=== PATIENT | female | born 1950 | race Caucasian/White ===

== ENCOUNTER 2017-03-03 08:44 | Day surgery (SDC) | payer OTHER ==
[~2017-03-03] VITALS: Ht 170.2 cm; Wt 72.0 kg
[~2017-03-03 08:44] MED LIST: ALBU18HF INH; ALPR0.5T8 PO; ASPI-973 PO; CHOL100045 PO; CYCL5TAB PO; HYDR-4003 PO; IBUP200C PO; ONDA-53 PO; Sodium Chloride LOK Flush 10 mL Syringe IV PRN; VIT1TABL83 PO; fentaNYL-PF 50 mCg/mL 2 mL Inj IVPUSH PRN
[2017-03-03 09:17] VITALS: BP 139/78; PULSE 50; RESP 14; O2SAT 98
[2017-03-03] MEDS ORDERED: LISI10TA PO (09:20)
[2017-03-03] MEDS: 0.9% Sodium Chloride 1,000 ML IV SCH ×2 (09:53→09:56)
[2017-03-03 10:07] VITALS: BP 117/67; PULSE 48; RESP 14; O2SAT 96
[2017-03-03 10:16] VITALS: BP 112/62; PULSE 56; RESP 16; O2SAT 97
[2017-03-03 10:26] VITALS: BP 126/62; PULSE 44; RESP 16; O2SAT 97
[2017-03-03 10:36] VITALS: BP 116/63; PULSE 56; RESP 16; O2SAT 98
--- NOTE | 2017-03-03 12:21 | ENDO ---
[address] [address] ENDOSCOPY PROCEDURE PATIENT: GABY MICHAEL : 1950 MR#: [id number] ADMIT: 03/03/2017 JOB ID: [id number] PROCEDURE: Colonoscopy. INDICATIONS: Screening. Patient's ASA classification is one. Mallampati score is two. MEDICATIONS: 1. Versed 6 mg. 2. Fentanyl 125 mcg. INSTRUMENT USED: PCF H 180 AL. PREPARATION QUALITY: Good. PROCEDURE DETAILS: After informed consent was obtained, the patient was brought to the GI suite where she was placed on oxygen via nasal cannula and monitored with continuous pulse oximeter, telemetry, and blood pressure monitoring. A time-out was performed, then she was placed in the left lateral decubitus position and medications were administered for sedation. Digital rectal exam was performed, which was unremarkable. The colonoscope was then inserted into the rectum and advanced under direct visualization to the cecum, which identified by the presence of the ileocecal valve and appendiceal orifice. Insertion to the cecum was quite difficult as the patient's colon was quite tortuous. Once the cecum was reached, the colonoscope was then withdrawn back into the rectum as the mucosa and lumen were examined. In the rectum, retroflexion was performed. Following retroflexion, the remaining air in the rectum was suctioned and the procedure was completed. FINDINGS: 1. In the transverse colon there was an approximately 5-6 mm sessile polyp that was removed with a cold snare. 2. Scattered diverticula were seen throughout the entire colon. IMPRESSION: 1. Transverse colon polyp. 2. Scattered diverticula throughout the entire colon. RECOMMENDATIONS: 1. Fiber rich diet. 2. Repeat colonoscopy pending polyp pathology results. COMPLICATIONS: None. ESTIMATED BLOOD LOSS: Less than 5 mL.
--- NOTE | 2017-03-06 14:50 | PATH ---
SURGICAL PATHOLOGY Attending Physician:Linnette Corona CASE STATUS: Signed Out PATIENT NAME: GABY MICHAEL PID: [id number] : 1950 DATE COLLECTED:03/03/2017 16:58 SPECIMEN: Colon, Polyp CLINICAL HISTORY: SCREENING, COLON POLYP 1). TRANSVERSE COLON POLYP FINAL DIAGNOSIS: 1.TRANSVERSE COLON POLYP: TUBULAR ADENOMA. ICD10 D12.3 GROSS DESCRIPTION: The specimen is received in formalin, labeled with the patient's name, sublabeled as transverse colon polyp, and consists of a piedra-yellow glistening rubbery semi-translucent sessile polyp (0.6 x 0.3 x 0.1 cm). Ink code: black-resection margin. Section code: (A) polyp, trisected. Specimen entirely submitted. 03/04/17 JM MICRO DESCRIPTION: See diagnosis. ICD-9 CODES: CPT CODES: 1: 35116 Electronically Signed Out Kody Amezquita MD [facility] [address], [place] [address] Technical component performed at [facility], [facility] [address], [address]
== END 2017-03-03 23:59 | disposition home or self-care (01) ==
LOC: END 08:44
PROVIDERS: ATTEND Internal Medicine Gastroenterology
DX: Z12.11 Encounter for screening for malignant neoplasm of colon (principal); D12.3 Benign neoplasm of transverse colon
CPT/HCPCS: 45385; 99153; G0500; J2250; J3010; J7030